=== PATIENT | male | born 1990 | race Caucasian/White ===

== ENCOUNTER 2017-02-22 15:13 | Emergency (ER) | payer BC ==
[~2017-02-22] VITALS: Ht 195.6 cm; Wt 111.4 kg
[2017-02-22 15:44] LABS: BASO % 0.4 % (0.0-2.0); EOS # 0.2 (0.0-0.7); EOS % 2.6 % (0-4.0); GRAN # 3.6 (1.4-6.5); GRAN % 50.1 % (42.2-75.2); HEMATOCRIT 42.9 % (42.0-52.0); HEMOGLOBIN 14.7 g/dl (13.5-18.0); LYMPH # 2.7 (1.2-3.4); LYMPH % 37.7 % (20.0-51.0); MEAN CELL VOLUME 86 fl (80.0-100.0); MEAN CORPUSCULAR HEMOGLOBIN 30 pg (27.0-31.0); MEAN CORPUSCULAR HGB CONC 34 g/dl (33.0-37.0); MEAN PLATELET VOLUME 9.2 fl (7.4-10.4); MONO # 0.7 (0.1-0.6); MONO % 9.1 % (1.7-9.3); PLATELET COUNT 214 K/mm3 (130-400); RED BLOOD COUNT 4.98 M/mm3 (4.20-5.60); REDCELL DISTRIBUTION WIDTH-CV 12.4 % (11.5-14.5); WHITE BLOOD COUNT 7.2 K/mm3 (4.8-10.8)
[2017-02-22] MEDS ORDERED: NORCO 325 MG-51 TAB PO (16:24)
[2017-02-22] MEDS ORDERED: CEPHALEXIN500 M1 PO (16:24)
[2017-02-22 16:28] VITALS: BP 153/89; PULSE 90
== END 2017-02-22 16:50 | disposition home or self-care (01) ==
LOC: COL.ER 15:13
PROVIDERS: Emergency Medicine
DX: S51.811A Laceration without foreign body of right forearm, initial encounter (principal); Z23 Encounter for immunization; W26.8XXA Contact with other sharp object(s), not elsewhere classified, initial encounter; Y99.0 Civilian activity done for income or pay
CPT/HCPCS: J0690; J7030